=== PATIENT | female | born 1970 | race Caucasian/White ===

== ENCOUNTER 2020-12-04 08:34 | Emergency (ER) | payer OTHER ==
[2020-12-04 08:49] VITALS: BP 134/69; PULSE 63; TEMP 98.1; BMI 26.5
[2020-12-04] MEDS ORDERED: ACETAMINOPHEN 325 MG TABLET (FP) PO ONE (08:56)
[2020-12-04] MEDS ORDERED: KETOROLAC TROMETHAMINE 60 MG/2 ML VIAL IM ONE (08:56)
[2020-12-04] MEDS ORDERED: LIDOCAINE 5% TOPICAL PATCH TP ONE (08:56)
[2020-12-04] MEDS ORDERED: diazePAM 5 MG TABLET PO ONE (08:58)
[2020-12-04] MEDS ORDERED: ACETAMINOPHEN 325 MG TABLET (FP) ONE (09:03)
[2020-12-04] MEDS ORDERED: KETOROLAC TROMETHAMINE 30 MG/1 ML VIAL ONE (09:04)
[2020-12-04] MEDS ORDERED: diazePAM 5 MG TABLET ONE (09:04)
[2020-12-04] MEDS ORDERED: LIDOCAINE 5% TOPICAL PATCH ONE (09:06)
== END 2020-12-04 10:53 | disposition home or self-care (01) ==
LOC: JER 08:34
PROC: 3E0233Z Introduction of Anti-inflammatory into Muscle, Percutaneous Approach (ICD-10-PCS; principal; 2020-12-04)
DX: M54.41 Lumbago with sciatica, right side (principal)
CPT/HCPCS: 72100-TC-FY; 99284-25

== ENCOUNTER 2021-09-20 04:31 | Day surgery (SDC) | payer OTHER ==
[2021-09-18 11:27] VITALS: BMI 26.3
[2021-09-20 11:10] VITALS: TEMP 97.1
[2021-09-20 11:48] VITALS: BP 129/74; PULSE 60
== END 2021-09-20 12:10 | disposition home or self-care (01) ==
LOC: JASU-ENDO 04:31
PROVIDERS: ATTEND Internal Medicine Gastroenterology
PROC: 0DJD8ZZ Inspection of Lower Intestinal Tract, Via Natural or Artificial Opening Endoscopic (ICD-10-PCS; principal; 2021-09-20 11:00)
DX: Z12.11 Encounter for screening for malignant neoplasm of colon (principal); K57.30 Diverticulosis of large intestine without perforation or abscess without bleeding
CPT/HCPCS: 81025; 88305-TC; 88342-TC

== ENCOUNTER 2022-04-21 08:14 | Emergency (ER) | payer OTHER ==
[2022-04-21 08:38] VITALS: BP 128/50; PULSE 55; RESP 20; TEMP 98; BMI 26.5
== END 2022-04-21 09:20 | disposition home or self-care (01) ==
LOC: JER 08:14 → JERFT 08:14
DX: S10.80XA Unspecified superficial injury of other specified part of neck, initial encounter (principal); Y04.8XXA Assault by other bodily force, initial encounter
CPT/HCPCS: 99282-25